=== PATIENT | male | born 1990 | race Caucasian/White ===

== ENCOUNTER 2022-07-31 10:04 | Emergency (ER) | payer OTHER ==
[~2022-07-31] VITALS: Ht 185 cm; Wt 97.0 kg
[2022-07-31 10:15] VITALS: BP 134/88
[2022-07-31] MEDS ORDERED: TETANUS,DIPTH,PERTUSS P/F (BOOSTRIX) 0.5 ML VIAL IM ONE (10:45)
--- NOTE | 2022-07-31 11:02 | ED Integumentary General ---
General Chief Complaint: Skin/Wound Problems Stated Complaint: BURN Nursing Triage Note: Patient has presented to ER with cc of burn on his left lower abd. Patient states that he had a steam burn at work yesterday. He was seen in [facility] - and was sent home with silvadeen cream and daily dressing change. He is to be getting a call from the clinic today. He has some redness and blisters on his left side. He states that his boss thought more should be done and he was sent to ER for evaluation. Source: patient, RN notes reviewed Exam Limitations: no limitations History of Present Illness Date Seen by Provider: Jul 31, 2022 Time Seen by Provider: 10:19 Initial Comments 31-year-old male patient without history of medical problems presented to ER for evaluation of a thermal burn on left side of trunk that happened yesterday while he was at work with hot steam. Patient was seen at urgent care yesterday and treated with Silvadene cream and referred to wound clinic but his boss suggested he is coming to ER for more evaluation. Patient rated his pain as a mild pain and stated he had few blisters and one of them popped off but still has some unopened blister and his boss thought they need to get open. Patient denies fever and chills, nausea and vomiting, urinary or bowel problem. Patient is not up-to-date with tetanus immunization. Allergies and Home Medications Allergies Coded Allergies: No Known Drug Allergies (Unverified , 07/31/22) Patient Home Medication List Home Medication List Reviewed: Yes Review of Systems Review of Systems Constitutional: no symptoms reported EENTM: no symptoms reported Respiratory: no symptoms reported Cardiovascular: no symptoms reported Gastrointestinal: no symptoms reported Genitourinary: no symptoms reported Musculoskeletal: see HPI Skin: see HPI Psychiatric/Neurological: No Symptoms Reported Endocrine: No Symptoms Reported All Other Systems Reviewed Negative Unless Noted: Yes Past Mkqaahl-Ousnxl-Ozlhxv Hx Patient Social History Tobacco Use?: Yes Use of E-Cig and/or Vaping dev: Yes Substance use?: No Alcohol Use?: Yes Alcohol Frequency: Once in a while Pt feels they are or have been: Unable to obtain Physical Exam Vital Signs Vital Signs - First Documented 07/31/22 10:15 Temp 36.4 Pulse 90 Resp 16 B/P (MAP) 134/88 (103) Pulse Ox 100 O2 Delivery Room Air Capillary Refill : General Appearance: WD/WN, no apparent distress HEENT: PERRL/EOMI, normal ENT inspection, TMs normal, pharynx normal Neck: non-tender, full range of motion, supple, normal inspection Cardiovascular: normal peripheral pulses, regular rate, rhythm, no edema, no gallop, no JVD, no murmur Respiratory: chest non-tender, lungs clear, normal breath sounds, no respiratory distress, no accessory muscle use Gastrointestinal: non tender, soft, no organomegaly, no pulsatile mass Back: no CVA tenderness, no vertebral tenderness Extremities: normal range of motion, non-tender, normal inspection, no pedal edema, no calf tenderness, normal capillary refill, pelvis stable Neurologic/Psychiatric: no motor/sensory deficits, alert, normal mood/affect, oriented x 3, EOM palsy, depressed affect Skin: warm/dry, other (15 x 20 cmarea od 2nd degree burn on left flank with x 2 unoppned blister and x 1 opened blister without sign of infection, 5 x 5 cm area of 2nd degree burn on left upper thigh ) Lymphatic: no adenopathy Progress/Results/Core Measures Results/Orders My Orders Orders - NINO BLOOM MD Dipht,Pertuss(Acell),Tet Adult (Boostrix (07/31/22 10:45) Medications Given in ED Current Medications Medications Dose Ordered Sig/Nyla Route Start Time Stop Time Status Last Admin Dose Admin Diphtheria/ Tetanus/Acell Pertussis 0.5 ml ONCE ONCE IM 07/31/22 10:45 07/31/22 10:46 DC 07/31/22 10:47 0.5 ML Vital Signs/I&O 07/31/22 10:15 Temp 36.4 Pulse 90 Resp 16 B/P (MAP) 134/88 (103) Pulse Ox 100 O2 Delivery Room Air Blood Pressure Mean: 103 Progress Progress Note : Progress Note Patient with second-degree burn to left side of trunk presented for evaluation after seen at urgent care yesterday and had Silvadene ointment and referred to wound clinic. Patient rated his pain as a mild and did not have tetanus immunization up-to-date. Patient stated tetanus immunization and advised to continue Silvadene ointment and follow-up with wound clinic. Limited full activity for bending and squatting was given. Patient advised to follow-up with wound clinic or return to ER as needed. New dressing was applied. Departure Impression Primary Impression: Burn of trunk, second degree Qualified Codes: T21.20XA - Burn of second degree of trunk, unspecified site, initial encounter Disposition: HOME, SELF-CARE Condition: Stable Departure-Patient Inst. Decision time for Depature: 11:01 Referrals: NO,LOCAL PHYSICIAN (PCP/Family) Primary Care Physician Patient Instructions: Skin Cueto (DC) Add. Discharge Instructions: Continue Silvadene ointment as instructed May take [id number] ibuprofen as needed for pain Follow-up with wound clinic as scheduled Return to ER as needed All discharge instructions reviewed with patient and/or family. Voiced understanding. NINO BLOOM MD Jul 31, 2022 11:02
== END 2022-07-31 11:16 | disposition home or self-care (01) ==
LOC: ER FS 10:06
DX: T21.22XA Burn of second degree of abdominal wall, initial encounter (principal); T24.212A Burn of second degree of left thigh, initial encounter; F17.290 Nicotine dependence, other tobacco product, uncomplicated; Z28.310 Unvaccinated for COVID-19; Z23 Encounter for immunization; X13.1XXA Other contact with steam and other hot vapors, initial encounter; Y92.59 Other trade areas as the place of occurrence of the external cause; Y99.0 Civilian activity done for income or pay
CPT/HCPCS: 90715; 99284